=== PATIENT | female | born 1990 | race American Indian/Alaskan Native ===

== ENCOUNTER 2019-01-29 11:30 | Inpatient (IN) | payer MEDICAID ==
[2019-01-30] MEDS ORDERED: METOCLOPRAMIDE 10 MG/2 ML INJ IV ONE (06:13)
[2019-01-30] MEDS ORDERED: FAMOTIDINE 20 MG/2 ML INJ IV ONE (06:13)
[2019-01-30] MEDS ORDERED: BICITRA ORAL LIQD 30ML PO ONE (06:13)
[2019-01-30] MEDS ORDERED: HYDROmorphone 1 MG/1 ML INJ IV PRN ×2 (06:25)
[2019-01-30] MEDS ORDERED: ONDANSETRON 4 MG/2 ML INJ IV PRN (06:25)
[2019-01-30] MEDS ORDERED: NALOXONE 0.4 MG/1 ML INJ IV PRN ×2 (06:25→10:00)
[2019-01-30] MEDS ORDERED: PROMETHAZINE 25 MG RECT SUPP PR PRN ×2 (06:25→10:30)
[2019-01-30] MEDS ORDERED: PROMETHAZINE 25 MG TAB PO PRN (06:25)
--- NOTE | 2019-01-30 06:31 | Anesthesia Consultation ---
Anesthesia Consult and Med Hx Date of service: 01/30/19 - Airway Anesthetic Teeth Evaluation: Good ROM Head & Neck: Adequate Mental/Hyoid Distance: Adequate Mallampati Class: Class II Intubation Access Assessment: Good - Pulmonary Exam CTA: Yes - Cardiac Exam Cardiac Exam: RRR - Pre-Operative Health Status ASA Pre-Surgery Classification: ASA2 Proposed Anesthetic Plan: Spinal
--- NOTE | 2019-01-30 06:32 | Anesthesia Day of Surgery ---
Anesthesia Day of Surgery - Day of Surgery Patient Examined: Yes Patient H&P Reviewed: Yes Patient is NPO: Yes
[2019-01-30 06:37] LABS: Hematocrit 30.1 % (30.3-42.9); Hemoglobin 9.7 gm/dl (10.1-14.3); Mean Corpuscular HGB Conc 32 % (30-34); Platelet Count 206 K/mm3 (140-440); Red Blood Count 4.48 M/mm3 (3.65-5.03); Red Cell Distribution Width 16.7 % (13.2-15.2)
[2019-01-30 06:40] LABS: Mean Corpuscular Volume 67 fl (79-97)
[2019-01-30] MEDS ORDERED: ceFAZolin/Water 2 GM/20 ML 2 GM/20 ML SYRINGE IV NR (07:00)
[2019-01-30] MEDS ORDERED: LACTATED RINGERS 1,000 ML IV SCH (07:00)
[2019-01-30] MEDS ORDERED: OXYTOCIN 20 UNIT/1000ML DRIP 20 UNITS/1,000 ML BAG IV SCH ×2 (07:00→10:00)
[2019-01-30] MEDS ORDERED: fentaNYL-BUPIV 2 MCG/ML-0.125% 200 MCG/100 ML BAG EPIDURAL SCH (07:00)
[2019-01-30] MEDS ORDERED: ONDANSETRON 4 MG/2 ML INJ ONE (07:24)
[2019-01-30] MEDS ORDERED: DEXMEDETOMIDINE 200 MCG/2 ML VIAL IV ONE (07:24)
--- NOTE | 2019-01-30 07:36 | History and Physical Report ---
History of Present Illness Date of examination: 01/30/19 Date of admission: 01/30/19 05:54 Chief complaint: Repeat History of present illness: This is a 28 yo at 39 weeks here for repeat . She is a patient of [facility]. Past History Past Medical History: no pertinent history Past Surgical History: section (x1) Family/Genetic History: none Social history: single. denies: smoking, alcohol abuse, prescription drug abuse - Obstetrical History : 5 Medications and Allergies Allergies Allergy/AdvReac Type Severity Reaction Status Date / Time No Known Allergies Allergy Unverified 01/30/19 06:12 Active Meds: Active Medications Hydromorphone HCl (Dilaudid) 0.5 mg IV Q4H PRN PRN Reason: breakthrough pain > 7/10 Hydromorphone HCl (Dilaudid) 0.5 mg IV Q5M PRN PRN Reason: BREAK Stop: 01/30/19 12:35 Oxytocin/Sodium Chloride (Pitocin/Ns 20 Unit/1000ml Drip) 20 units in 1,000 mls @ 0 mls/hr IV TITR CATRINA Lactated Ringer's (Lactated Ringers) 1,000 mls @ 2,250 mls/hr IV PREOP CATRINA Stop: 01/31/19 07:27 Last Admin: 01/30/19 06:43 Dose: 2,250 mls/hr Documented by: Cefazolin Sodium (Ancef/Sterile Water 2 Gm/20 Ml) 2 gm in 20 mls @ 80 mls/hr IV PREOP NR; Protocol Stop: 01/30/19 23:45 Fentanyl/Bupivacaine/Sodium Chlor (Fentanyl-Bupiv 2 Mcg/Ml-0.125%) 200 mcg in 100 mls @ 8 mls/hr EPIDURAL TITRATE CATRINA; Protocol Naloxone HCl (Naloxone) 0.2 mg IV Q2MIN PRN PRN Reason: Res Rate </= 8 or 02 SAT < 92% Ondansetron HCl (Zofran) 4 mg IV Q8H PRN PRN Reason: Nausea And Vomiting Promethazine HCl (Phenergan) 25 mg PO Q6H PRN PRN Reason: Nausea And Vomiting Promethazine HCl (Phenergan) 25 mg UT Q6H PRN PRN Reason: Nausea And Vomiting Sodium Chloride (Sodium Chloride Flush Syringe 10 Ml) 10 ml IV PRN NR Stop: 01/31/19 06:59 Review of Systems All systems: negative - Vital Signs Vital signs: Vital Signs Temp 97.9 F 01/30/19 06:28 Temp Pulse Resp BP Pulse Ox 97.9 F 01/30/19 06:28 - Physical Exam Breasts: Positive: normal Cardiovascular: Regular rate, Normal S1 Lungs: Positive: Clear to auscultation, Normal air movement Abdomen: Positive: normal appearance, soft, normal bowel sounds. Negative: distention, tenderness, guarding Genitourinary (Female): Positive: normal external genitalia, normal perenium Vagina: Positive: normal moisture Uterus: Positive: normal size, normal contour Extremities: Positive: normal Deep Tendon Reflex Grade: Normal +2 - Obstetrical FHR: category 1 Results Result Diagrams: 01/30/19 06:22 Abnormal lab results 01/30/19 Range/Units 06:22 Hgb 9.7 L (10.1-14.3) gm/dl Hct 30.1 L (30.3-42.9) % MCV 67 L (79-97) fl MCH 22 L (28-32) pg RDW 16.7 H (13.2-15.2) % All other labs normal.
[2019-01-30 08:03] LABS: Basophils % (Manual) 0 % (0.0-1.8); Eosinophils % (Manual) 0 % (0.0-4.3); Hypochromasia 2+; Total Cells Counted 100
[2019-01-30 08:04] LABS: Giant Platelets Few; Platelet Estimate Consistent w Auto
[2019-01-30] MEDS ORDERED: KETOROLAC 30 MG/1 ML INJ ONE (08:30)
[2019-01-30] MEDS ORDERED: diphenhydrAMINE 50 MG/ML VIAL ONE (08:30)
[2019-01-30] MEDS ORDERED: HYDROmorphone 1 MG/1 ML INJ ONE (09:27)
--- NOTE | 2019-01-30 09:41 | Procedure Note ---
OB Delivery Note - Delivery Date of Delivery: 01/30/19 Surgeon: EARL CESPEDES Estimated blood loss: other (700cc) - Section Preop diagnosis: repeat Postop diagnosis: same section procedure: section Disposition: PACU Narrative: see op note - Infant A at 1 minute: 8 at 5 minutes: 9 Infant Gender: Male (8 pounds)
--- NOTE | 2019-01-30 09:50 | Operative Report ---
Operative Report Operative Report: DATE OF OPERATION: 01/30/2019 PREOPERATIVE DIAGNOSES: 1. Prior section. 2. Declines vaginal after . 3. A 39 weeks gestation. POSTOPERATIVE DIAGNOSES: 1. Prior section. 2. Declines vaginal after . 3. A 39 weeks gestation. 4. Extremely dense scar tissue with adhesions to complete anterior uterus to abdominal wall OPERATION PERFORMED: Repeat low transverse . SURGEON: Stephany Palumbo MD ANESTHESIA: Spinal. ESTIMATED BLOOD LOSS: 700 mL. FINDINGS: A viable male weighing 8 pounds Apgars 8 and 9 COMPLICATIONS: None. DISPOSITION: Stable. DESCRIPTION OF OPERATION: After informed consent was obtained, the patient was brought back to the operative suite where adequate spinal anesthesia was obtained. The patient was then placed in the dorsal supine position and prepped and draped in the sterile fashion. A repeat Pfannenstiel skin incision was made with a blade and carried down through the subcutaneous tissues to the fascia, which was extended in the transverse fascia with Martinez scissors. The fascial in cision was then dissected off the rectus muscles both bluntly and sharply. The rectus muscle was in the midline. The peritoneum was entered bluntly. The peritoneal was plastered to anterior uteus. Dense adhesions were so abundant difficult to identify uterus after 10 min of releasing adhesions identified uterus. The bladder blade was placed, and the uterus entered. A low transverse uterine incision was made with the blade and carried down through the layers of the uterus until clear fluid came through the incision. The uterine incision was then extended digitally. Hand was placed inside the pelvis, and the head was brought up out of the pelvis and delivered atraumatically with gentle fundal pressure. Prior to the head being delivered, actually through the skin, the sound of the baby starting to cry was noted. After the head was delivered, the mouth and nares were aggressively bulb suctioned. Remainder of the infant was delivered, and the infant was passed to the awaiting nursing staff for additional care. Cord was doubly clamped and cut and cord blood was obtained and special cord banking blood obtained. . The placenta was then manually extracted, and the uterus was unable to exteriorized. The uterus was cleaned of remaining clot. The uterine incision was readily identified and closed in two layers, first one with running locking followed by second imbricating layer of 0 Vicryl. The uterus very friable multiple stitches placed., hemoblast appleied , surgicell applied and tessel applied until observed for over 5 min and no active bleeding noted.The fascia was closed with 1 PDS from one angle to the next. Subcutaneous tissues were copiously irrigated, and final bleeders were cauterized. The incision was then reapproximated with surgical Matt needle in a standard fashion. I spoke with patient and discussed danger of getting again. If there is another csec would require two surgical attendants.
[2019-01-30] MEDS ORDERED: LANOLIN/ZINC/DIMETHICONE (LANSINOH) 7 GM TP PRN (10:00)
[2019-01-30] MEDS ORDERED: MORPHINE 4 MG/1 ML INJ IV PRN (10:00)
[2019-01-30] MEDS ORDERED: MORPHINE 2 MG/1 ML INJ IV PRN (10:00)
[2019-01-30] MEDS ORDERED: D5W/LACTATED RINGERS 1,000 ML IV SCH (10:00)
[2019-01-30] MEDS ORDERED: ACETAMINOPHEN 325 MG TAB PO PRN (10:00)
[2019-01-30] MEDS ORDERED: HYDROCORTISONE 25 MG RECTAL SUPP PR PRN (10:00)
[2019-01-30] MEDS ORDERED: WITCH HAZEL/ GLYCERIN PAD TP PRN (10:00)
[2019-01-30] MEDS ORDERED: SIMETHICONE 80 MG CHEW TAB PO PRN (10:30)
--- NOTE | 2019-01-30 15:10 | Post Anesthesia Evaluation ---
- Post Anesthesia Evaluation Patient Participated: Yes Airway Patent: Yes Stable Respiratory Function: Yes Nausea/Vomiting: No Temp > 96.8F: Yes Pain Manageable: Yes Adequeate Hydration: Yes Anesthesia Complications: No Block Receding Appropriately: Not Applicable (Fred QL block for postop pain in pacu.) Patient on Ventilator: No
[2019-01-30] MEDS: PRENATAL VIT27-FE FUMARATE-FOLIC ACID VIT TAB PO SCH (19:14)
[2019-01-30] MEDS: FERROUS SULFATE 325 MG TAB PO SCH (19:14)
[2019-01-30] MEDS: oxyCODONE /ACETAMINOPHEN 5-325MG TAB PO PRN (20:53)
[2019-01-30 21:32] LABS: Hemoglobin 8.6 gm/dl (10.1-14.3)
[2019-01-30] MEDS ORDERED: MAGNESIUM HYDROXIDE (MOM) ORAL LIQD UDC PO PRN (22:00)
[2019-01-30] MEDS ORDERED: SENNOSIDES 8.6 MG TAB PO PRN (22:00)
[2019-01-31] MEDS: IBUPROFEN 800 MG TAB PO PRN ×2 (02:23→23:51)
[2019-01-31] MEDS ORDERED: TETANUS,DIPH,PERTUSS(ACELL) VACCINE 0.5 ML SYRINGE IM ONE (06:00)
[2019-01-31] MEDS: oxyCODONE /ACETAMINOPHEN 5-325MG TAB PO PRN ×2 (07:43→20:35)
--- NOTE | 2019-01-31 11:03 | Progress Note ---
Assessment and Plan A/P POD 1 s/p repeat csec with lysis of adhesions VSS doing well routine PP care Subjective - Subjective Date of service: 01/31/19 Principal diagnosis: Repeat LSTCS Interval history: This is a 28 yo at 39 weeks here for repeat . She is a patient of [facility]. Patient reports: appetite normal, voiding normally, pain well controlled, flatus, ambulating normally : doing well Objective - Vital Signs Latest vital signs: Vital Signs Temp Pulse Resp BP BP Pulse Ox 01/31/19 08:33 98.4 F 96 H 20 129/83 99 01/31/19 00:53 97.8 F 79 20 107/63 94 01/30/19 21:18 98.5 F 83 20 121/83 97 01/30/19 17:51 97.9 F 81 18 105/68 01/30/19 11:45 98.2 F 86 16 152/96 98 Intake and Output 01/30/19 01/31/19 01/31/19 23:59 07:59 15:59 Intake Total 960 840 240 Output Total 3600 Balance -2640 840 240 Intake: Oral 480 240 Intake, Free Water 480 840 Output: Urine 3600 Indwelling Catheter 3600 Other: Total, Intake Amount 480 240 Total, Output Amount 1800 # Voids Indwelling Catheter 1 Void 2 1 - Exam Breasts: Present: normal Cardiovascular: Present: Regular rate, Normal S1 Lungs: Present: Clear to auscultation, Normal air movement Abdomen: Present: normal appearance, soft, normal bowel sounds. Absent: distention, tenderness, guarding Vulva: both: normal Uterus: Present: normal, firm, fundal height below umbilicus. Absent: bogginess, tenderness Extremities: Present: normal Deep Tendon Reflex Grade: Normal +2 Incision: Present: normal, dry, intact - Labs Labs: Abnormal lab results 01/30/19 Range/Units 20:16 Hgb 8.6 L (10.1-14.3) gm/dl Hct 27.0 L (30.3-42.9) %
[2019-01-31] MEDS ORDERED: MEASLES, MUMPS & RUBELLA 12,500 UNIT/0.5 ML VACCINE SUB-Q ONE (12:00)
[2019-01-31] MEDS: HYDROcodone/ACETAMINOPHEN 5-325 MG TAB PO PRN (12:37)
[2019-01-31] MEDS: FERROUS SULFATE 325 MG TAB PO SCH (18:34)
[2019-01-31] MEDS: PRENATAL VIT27-FE FUMARATE-FOLIC ACID VIT TAB PO SCH (18:35)
[2019-02-01] MEDS: IBUPROFEN 800 MG TAB PO PRN (05:19)
--- NOTE | 2019-02-01 09:21 | Progress Note ---
Assessment and Plan A/P POD 2 s/p repeat csec with lysis of adhesions VSS doing well routine PP care consider d/c home tomorrow Subjective - Subjective Date of service: 02/01/19 Principal diagnosis: Repeat LSTCS Interval history: This is a 28 yo at 39 weeks here for repeat . She is a patient of [facility]. Patient reports: appetite normal, voiding normally, pain well controlled, flatus, ambulating normally : doing well Objective - Vital Signs Latest vital signs: Vital Signs Temp Pulse Resp BP BP Pulse Ox 02/01/19 06:19 18 02/01/19 05:19 18 02/01/19 00:51 18 01/31/19 23:51 18 01/31/19 23:47 97.9 F 96 H 20 129/77 93 01/31/19 21:35 18 01/31/19 20:35 18 01/31/19 16:21 97.7 F 81 20 118/78 93 Intake and Output 01/31/19 02/01/19 02/01/19 23:59 07:59 15:59 Intake Total 360 120 Balance 360 120 Intake: Oral 360 Intake, Free Water 120 Other: Total, Intake Amount 240 # Voids Void 1 1 - Exam Breasts: Present: normal Cardiovascular: Present: Regular rate, Normal S1 Lungs: Present: Clear to auscultation, Normal air movement Abdomen: Present: normal appearance, soft, normal bowel sounds. Absent: distention, tenderness, guarding Vulva: both: normal Uterus: Present: normal, firm, fundal height below umbilicus. Absent: bogginess, tenderness Extremities: Present: normal Deep Tendon Reflex Grade: Normal +2 Incision: Present: normal, dry, intact
[2019-02-01] MEDS: PRENATAL VIT27-FE FUMARATE-FOLIC ACID VIT TAB PO SCH (09:32)
[2019-02-01] MEDS: FERROUS SULFATE 325 MG TAB PO SCH (09:32)
[2019-02-01] MEDS: HYDROcodone/ACETAMINOPHEN 5-325 MG TAB PO PRN (11:42)
[2019-02-01] MEDS: oxyCODONE /ACETAMINOPHEN 5-325MG TAB PO PRN (20:02)
[2019-02-02] MEDS: IBUPROFEN 800 MG TAB PO PRN ×2 (03:32→12:37)
[2019-02-02] MEDS: oxyCODONE /ACETAMINOPHEN 5-325MG TAB PO PRN (06:42)
--- NOTE | 2019-02-02 08:23 | Progress Note ---
Assessment and Plan A: POD#3 s/p repeat section at term, Asymptomatic anemia P: Routine care. Discharge today with follow up in 1 week for incision check Subjective - Subjective Date of service: 02/02/19 Principal diagnosis: Repeat section Interval history: Pt without complaints. Patient reports: appetite normal, voiding normally, flatus, bowel movement, ambulating normally : doing well Objective - Vital Signs Latest vital signs: Vital Signs Temp Pulse Resp BP BP Pulse Ox 02/02/19 00:30 98.8 F 96 H 18 129/77 92 02/01/19 17:05 98.2 F 107 H 18 132/79 98 02/01/19 08:24 98.0 F 87 18 115/80 96 Intake and Output 02/01/19 02/02/19 02/02/19 22:59 06:59 14:59 Intake Total 1440 360 Balance 1440 360 Intake: Oral 360 Intake, Free Water 1440 Other: Total, Intake Amount 360 # Voids Void 4 2 - Exam Breasts: Present: deferred Cardiovascular: Present: Regular rate Lungs: Present: Clear to auscultation Abdomen: Present: soft Uterus: Present: fundal height below umbilicus Extremities: Present: edema (trace) Incision: Present: intact
--- NOTE | 2019-02-02 08:25 | Discharge Summary ---
Providers - Providers Date of Admission: 01/30/19 05:54 Date of discharge: 02/02/19 Attending physician: EARL CESPEDES MD Primary care physician: EARL CESPEDES MD Hospitalization Reason for admission: section Delivery: Procedure: section, repeat low transverse Procedure details: Please see operative note. Incision: intact complications: none Discharge diagnosis: IUP at term delivered baby: male Hospital course: Pt was admitted for repeat section. Her postoperative course was uncomplicated and she met discharge criteria on POD#3. She will follow up in 1 wk for an incision check. Condition at discharge: Stable Disposition: DC-01 TO HOME OR SELFCARE - Discharge Diagnoses (1) S/P section Status: Acute (2) Obesity Status: Acute Qualifiers: Obesity type: unspecified obesity type Obesity classification: adult class 2 (BMI 35 - 39.9) Body mass index: BMI 38.0-38.9 (3) 39 weeks gestation of Status: Acute (4) Anemia Status: Acute Qualifiers: Anemia type: unspecified type Qualified Code(s): D64.9 - Anemia, unspecified Plan - Discharge Medications Prescriptions: Ferrous Sulfate [Feosol 325 MG tab] 325 mg PO TID #60 tablet Ibuprofen [Motrin] 600 mg PO Q8H PRN #30 tablet PRN Reason: Pain oxyCODONE /ACETAMINOPHEN [Percocet 5/325] 1 tab PO Q6HR PRN #30 tablet PRN Reason: Pain - Provider Discharge Summary Activity: routine, no sex for 6 weeks, no heavy lifting 4 weeks, no strenuous exercise Diet: routine Instructions: routine Additional instructions: [] Smoking cessation referral if applicable(refer to patient education folder for contact #) [] Refer to [facility] Booklet Call your doctor immediately for: * Fever > 100.5 * Heavy vaginal bleeding ( >1 pad per hour) * Severe persistent headache * Shortness of breath * Reddened, hot, painful area to leg or breast * Drainage or odor from incision. * Keep incision clean and dry at all times and follow doctor's instructions regarding bathing/showering - Follow up plan Follow up: EARL CESPEDES MD [Primary Care Provider] - 7 Days
[2019-02-02] MEDS: PRENATAL VIT27-FE FUMARATE-FOLIC ACID VIT TAB PO SCH (12:37)
[2019-02-02] MEDS: FERROUS SULFATE 325 MG TAB PO SCH (12:37)
[2019-02-02 14:31] VITALS: BP 133/83
== END 2019-02-02 14:10 | disposition home or self-care (01) | DRG 766 ==
LOC: APU 01-30 05:54 → OB 01-30 12:11
PROVIDERS: ADMIT Obstetrics & Gynecology; ATTEND Obstetrics & Gynecology
PROC: 10D00Z1 Extraction of Products of Conception, Low, Open Approach (ICD-10-PCS; principal; 2019-01-30)
PROC: 0DNW0ZZ Release Peritoneum, Open Approach (ICD-10-PCS; 2019-01-30)
PROC: 3E0234Z Introduction of Serum, Toxoid and Vaccine into Muscle, Percutaneous Approach (ICD-10-PCS; 2019-01-31)
DX: O34.211 Maternal care for low transverse scar from previous cesarean delivery (principal); O99.214 Obesity complicating childbirth; O99.02 Anemia complicating childbirth; D64.9 Anemia, unspecified; O99.62 Diseases of the digestive system complicating childbirth; K66.0 Peritoneal adhesions (postprocedural) (postinfection); Z3A.39 39 weeks gestation of pregnancy; Z37.0 Single live birth; Z23 Encounter for immunization
CPT/HCPCS: 36415; 85007; 85014; 85018; 85025; 86592; 86706; 86850; 86900; 86901; 88307; G0378; C1765; C9250; J0690; J1170; J1200; J1885; J2405; J2590; J2765; J3490; J7120